=== PATIENT | female | born 1985 | race Caucasian/White ===

== ENCOUNTER 2020-07-17 08:59 | Outpatient (CLI) | payer MEDICAID, SELFPAY ==
--- NOTE | 2020-07-17 13:45 | DI.US_ITS ---
EXAM: US OB 1ST TRIMESTER CLINICAL HISTORY: Bleeding with TECHNIQUE: Ultrasound performed using standard protocol. COMPARISON: No exams were available for comparison FINDINGS: Transabdominal and transvaginal scanning was performed. The uterus measures 7.4 x 3.5 x 4.7 cm. Rig ht ovary measures 23 x 14 x 12 millimeters. Left ovary measures 22 x 13 x 13 millimeters. There is no evidence of an intrauterine gestational sac. Endometrial stripe measures about 6 millimeters in t hickness and appears homogeneous. No free fluid identified in the pelvis. IMPRESSION: No intrauterine gestation is identified. Ectopic is not excluded on the basis of this exam ination. Please correlate with history and serologic findings. DATA REPOSITORY:
== END 2020-07-17 09:19 ==
PROVIDERS: Visit Provider Nurse Practitioner Family
DX: O20.8 Other hemorrhage in early pregnancy (principal)
CPT/HCPCS: 76801

== ENCOUNTER 2021-03-22 03:37 | Outpatient (CLI) | payer MEDICAID, SELFPAY ==
[2021-03-22 16:22] LABS: Abs Immature Grans 0.06 10^3/uL (0.0-0.06); Absolute Basophil Count 0.02 10^3/uL (0.0-0.2); Absolute Eosinophil Count 0.73 10^3/uL (0.0-0.7); Absolute Lymphocyte Count 1.74 10^3/uL (1.2-3.4); Absolute Monocyte Count 0.63 10^3/uL (0.1-0.8); Absolute Neutrophil Count 5.47 10^3/uL (1.2-6.7); Basophils % 0.2; Eosinophils % 8.4; HCT 37.6 % (36.0-46.0); HGB 12.7 g/dL (11.2-15.7); Immature Grans % 0.7; Lymphocytes % 20.1; MCH 28.7 pg (27.0-33.0); MCHC 33.8 % (32.0-36.0); MCV 85.1 fL (80-95); Monocytes % 7.3; Neutrophils % 63.3; Nucleated RBC 0 %; RBC 4.42 10^6/uL (3.93-5.22); RDW 12.4 % (11.7-14.6); RDW-SD 38.2 fL; WBC 8.65 10^3/uL (4.4-10.8)
[2021-03-22 16:47] LABS: Platelet Count 235 10^3/uL (130-400)
[2021-03-22 17:31] LABS: *AMPHETAMINES SCREEN URINE Negative (Negative); *BARBITURATES SCREEN URINE Negative (Negative); *BENZODIAZEPINES SCREEN URINE Negative (Negative); Cannabinoids THC Negative (Negative); Cocaine Screen,Urine Negative (Negative); METHADONE URINE SCREEN Negative (Negative); OPIATES URINE SCREEN Negative (Negative); Tricyclic Antidepressants Negative (Negative)
[2021-03-28 12:27] LABS: Norbuprenorphine 355.8 ng/mL (Cutoff: 2.5)
== END 2021-03-22 03:38 | disposition home or self-care (01) ==
LOC: LBO 03:37
PROVIDERS: Visit Provider Advanced Practice Midwife
DX: Z34.92 Encounter for supervision of normal pregnancy, unspecified, second trimester (principal); Z3A.18 18 weeks gestation of pregnancy
CPT/HCPCS: 36415; 80307; 86787; 86803; 86900; 86901; 87340; 87389; 84443; 85025; 86762; 86780; 87086

== ENCOUNTER 2021-03-22 14:31 | Outpatient (CLI) | payer MEDICAID, SELFPAY ==
--- NOTE | 2021-03-22 14:15 | DI.US_ITS ---
Exam(s) US OB 1ST TRIMESTER EXAM: US OB 1ST TRIMESTER CLINICAL HISTORY: uncertain dates Z31.90. TECHNIQUE: Transabdominal obstetrical ultrasound performed. COMPARISON: US US OB 1ST TRIMESTER from 07/17/2020 US US OB 1ST TRIMESTER from 07/17/2020 FINDINGS:: Number of fetuses: One. Placental location: Posterior. No evidence of previa. Tip of the placenta 3.8 cm from the internal os. BIOMETRIC DATA: BPD: 40mm = 18 weeks HC: 148mm = 18 weeks AC: 123 mm = 18 weeks FL: 26 mm = 17+ 5 weeks EFW: 214 Gms = 74% Composite Age: 18 weeks 0 days EDC: 23 August 2021 Heart Rate: 173 BPM Amniotic fluid: Amount of fluid is visually within normal limits. IMPRESSION: Living intrauterine gestation 18 weeks 0 days. DATA REPOSITORY:
== END 2021-03-22 14:51 ==
PROVIDERS: Visit Provider Advanced Practice Midwife
DX: Z34.92 Encounter for supervision of normal pregnancy, unspecified, second trimester (principal); Z3A.18 18 weeks gestation of pregnancy
CPT/HCPCS: 76801

== ENCOUNTER 2021-03-26 07:08 | Outpatient (CLI) | payer MEDICAID, SELFPAY ==
[2021-03-26 09:06] VITALS: BP 109/64; PULSE 84; RESP 16; TEMP 36.5; O2SAT 99
[2021-03-26 09:08] VITALS: PULSE 86; O2SAT 99
[2021-03-26 10:14] LABS: Glucose,1 Hr (Glucola) 71 mg/dL (80-140)
[2021-03-26 11:40] LABS: FREE T4 0.75 ng/dL (0.76-1.46)
[2021-03-26 19:26] LABS: Thyroglobulin Antibody <15 U/mL (<=60); Thyroperoxidase Antibody 34 U/mL (<=60)
[2021-03-27 09:05] LABS: Hepatitis B Surface Ag Negative (Negative)
[2021-03-27 09:34] LABS: Hepatitis C Ab w Rflx HCV PCR Negative (Negative)
[2021-03-27 09:41] LABS: HIV-1/2 Ag & Ab Screen Negative (Negative)
[2021-03-27 11:23] LABS: Varicella IgG Antibody Positive (See Note)
[2021-03-27 11:31] LABS: Rubella IgG Ab (UVM) Positive (See Note)
[2021-03-27 12:34] LABS: Syphilis Total Ab w/Reflex Nonreactive (Nonreactive)
== END 2021-03-26 10:12 | disposition home or self-care (01) ==
LOC: LBO 07:09 → OBS 08:45
PROVIDERS: Advanced Practice Midwife; Visit Provider Advanced Practice Midwife
DX: Z34.91 Encounter for supervision of normal pregnancy, unspecified, first trimester (principal)
CPT/HCPCS: 36415; 82950; 86376; 86787; 86803; 86850; 86900; 86901; 87340; 87389; 99211; 84439; 84443; 86762; 86780

== ENCOUNTER 2021-06-05 07:18 | Outpatient (CLI) | payer MEDICAID, SELFPAY | END 2021-06-05 07:19 | disposition home or self-care (01) | LOC: BCD 07:20 | PROVIDERS: Visit Provider Advanced Practice Midwife | DX: R69 Illness, unspecified (principal) ==

== ENCOUNTER 2021-06-11 01:03 | Outpatient (CLI) | payer MEDICAID, SELFPAY | END 2021-06-11 01:23 | PROVIDERS: PCP Nurse Practitioner Adult Health; Visit Provider Advanced Practice Midwife ==

== ENCOUNTER 2021-06-18 17:14 | Outpatient (CLI) | payer MEDICAID, SELFPAY ==
[2021-06-18 18:26] VITALS: BP 120/71; PULSE 96
[2021-06-18 18:32] LABS: *AMPHETAMINES SCREEN URINE Negative (Negative); *BARBITURATES SCREEN URINE Negative (Negative); *BENZODIAZEPINES SCREEN URINE Negative (Negative); Cannabinoids THC Negative (Negative); Cocaine Screen,Urine Negative (Negative); METHADONE URINE SCREEN Negative (Negative); OPIATES URINE SCREEN Negative (Negative); Tricyclic Antidepressants Negative (Negative)
[2021-06-18 18:35] VITALS: BP 120/71; PULSE 96; TEMP 36.8
[2021-06-18 19:28] VITALS: BP 120/71; PULSE 96; TEMP 36.8
[2021-06-18 22:42] LABS: HCT 34.4 % (36.0-46.0); HGB 11.7 g/dL (11.2-15.7); MCH 29.8 pg (27.0-33.0); MCV 87.8 fL (80-95); MPV 10.5 fL (8.0-11.0); Platelet Count 283 10^3/uL (130-400); RBC 3.92 10^6/uL (3.93-5.22); RDW 12.7 % (11.7-14.6); RDW-SD 40.4 fL; WBC 8.94 10^3/uL (4.4-10.8)
[2021-06-18 23:02] LABS: Hemoglobin A1C 5.1 % (<5.7)
[2021-06-18 23:04] LABS: FREE T4 0.75 ng/dL (0.76-1.46); TSH 1.23 uIU/mL (0.36-3.74)
--- NOTE | 2021-06-18 23:05 | PDOC.NST_ITS ---
Date of service: 06/18/21 Time of Service: 20:00 NST Evaluation Reason for NST Reasons for Nonstress Test: DECREASED MOVEMENT Gestational Age Gestational Age in Weeks and Days: 30 Weeks and 4Days Test and Monitor Explained Test/Monitor Explained: Test Explained, Monitor Explained and Patient Verbalized Understanding Vital Signs Blood Pressure: 120/71 Pulse: 96 Temperature: 98.3 F NST Information Date on Monitor: 06/18/21 Time on Monitor: 17:33 Date off Monitor: 06/18/21 Time off Monitor: 19:18 Total Time on Monitor: 105 NST Interventions: PO Hydration NST Evaluation Patient States Movement: Present FHR Baseline: 135 Variability: Moderate 6-25 bpm Accelerations: 15x15 Decelerations: None NST Results: Reactive Note NST Note Note: DIRECTOR OF HOUSING AND ENERGY SERVICES available for ultrasound blood draw as pt is due for TSH/T4, CBC, HgbA1C added 1 hr glucola done using fingerstick, result was 153 Pt is scheduled for growth sono on 07/11 though she was not aware of this Will schedule pt for appt for tomorrow at 1000, review lab results then NST Reviewed and Verified by: Makayla Campoverde
[2021-06-18 23:08] VITALS: BP 120/71; PULSE 96; TEMP 36.8
--- NOTE | 2021-06-19 11:26 | TELEFU_ITS ---
Date of service: 06/19/21 Time of Service: 11:26 Nutrition Note NOTE: Met with Thelma at [facility]. She had elevated 1 hour glucola yesterday (153). Elevated BMI at conception (BMI31) however, has gained appropriately (+14 lbs). 30 weeks, 5 days. Thelma reports nausea has been a problem through out her and has relied on crackers and starchy foods for comfort. Often skips meals, when she does eat, its typically rice, noodles. Enjoys protein and vegetables but not interested in cooking due to nausea. Reviewed ideal blood sugar values and when to test BS. Reviewed importance of increasing protein in diet. Identified meals that she likes and encouraged her to log meals, blood sugars on log sheet provided by [facility]. Will follow up at next [facility] visit or prn. Time Spent in Nutritional Counseling and Treatment: 20
[2021-06-22 13:51] LABS: Buprenorphine 43.1 ng/mL (Cutoff: 5.0); Norbuprenorphine 265.9 ng/mL (Cutoff: 2.5)
== END 2021-06-18 19:25 | disposition home or self-care (01) ==
LOC: BCD 17:16 → OBS 17:19
PROVIDERS: PCP Nurse Practitioner Adult Health; Visit Provider Advanced Practice Midwife
DX: O36.8130 Decreased fetal movements, third trimester, not applicable or unspecified (principal); Z3A.30 30 weeks gestation of pregnancy; O09.523 Supervision of elderly multigravida, third trimester
CPT/HCPCS: 59025; 80307; 85027; 83036; 84439; 84443

== ENCOUNTER 2021-06-19 15:15 | Outpatient (REF) | payer MEDICAID, SELFPAY | END 2021-06-19 15:16 | disposition home or self-care (01) | LOC: LBN 15:15 | PROVIDERS: PCP Nurse Practitioner Adult Health; Visit Provider Advanced Practice Midwife | DX: Z34.92 Encounter for supervision of normal pregnancy, unspecified, second trimester (principal) | CPT/HCPCS: 87086 ==

== ENCOUNTER 2021-07-11 00:56 | Outpatient (CLI) | payer MEDICAID, SELFPAY ==
--- NOTE | 2021-07-11 08:15 | DI.US_ITS ---
Exam(s) US OB NICHELLE WEIGHT EXAM: US OB NICHELLE WEIGHT CLINICAL HISTORY: interval growth,covid,U07.1 TECHNIQUE: Ultrasound performed using standard protocol. COMPARISON: US US OB 1ST TRIMESTER from 03/22/2021 FINDINGS: Ob ultrasound was performed utilizing 3rd trimester protocol. biometry is consistent with gest ational age of 33 weeks 3 days and an EDC of August 26. The estimated weight is 2227 grams which is at the 34th percentile for predicted gestational ag e. Placenta is posterior with no evidence of placenta previa. There is visually a normal quantity of am niotic fluid and the NICHELLE is 11. Fetus is in cephalic presentation. heart rate is 158 BPM. IMPRESSION: DATA REPOSITORY:
== END 2021-07-11 01:16 ==
PROVIDERS: PCP Nurse Practitioner Adult Health; Visit Provider Advanced Practice Midwife
DX: O98.513 Other viral diseases complicating pregnancy, third trimester; U07.1 COVID-19; O09.523 Supervision of elderly multigravida, third trimester
CPT/HCPCS: 76816

== ENCOUNTER 2021-08-22 15:55 | Inpatient (IN) | payer MEDICAID, SELFPAY ==
[2021-08-22] VITALS (10 sets, daily range): BP systolic 120–137; BP diastolic 74–93; PULSE 73–93; RESP 16–18; TEMP 36.8; O2SAT 100; BMI 31.1
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
[2021-08-22 16:28] LABS: ROM Plus Positive
[2021-08-22 17:00] LABS: HCT 32.5 % (36.0-46.0); HGB 10.7 g/dL (11.2-15.7); MCH 26.8 pg (27.0-33.0); MCHC 32.9 % (32.0-36.0); MCV 81.3 fL (80-95); MPV 11.2 fL (8.0-11.0); Platelet Count 214 10^3/uL (130-400); RDW 12.3 % (11.7-14.6); RDW-SD 36.4 fL; WBC 6.91 10^3/uL (4.4-10.8)
--- NOTE | 2021-08-22 17:07 | W.OBNST ---
Date of service: 08/22/21 Time of Service: 16:30 NST Evaluation Reason for NST Reasons for Nonstress Test: OTHER, SEE COMMENT Reason for NST Other: r/o rom Gestational Age Gestational Age in Weeks and Days: 39 Weeks and 6Days Test and Monitor Explained Test/Monitor Explained: Test Explained, Monitor Explained and Patient Verbalized Understanding Vital Signs Blood Pressure: 132/86 Pulse: 93 Temperature: 98.2 F Urine Results Urine Protein: Negative Urine Ketones: Negative Urine Glucose: Negative Urine Blood: Negative NST Information Date on Monitor: 08/22/21 Time on Monitor: 15:35 Date off Monitor: 08/22/21 Time off Monitor: 16:05 Total Time on Monitor: 30 NST Interventions: None NST Evaluation Patient States Movement: Present FHR Baseline: 130 Variability: Moderate 6-25 bpm Accelerations: 15x15 Decelerations: None NST Results: Reactive Note NST Note Note: Thelma reports ROM and is here for NST due to inadequate care and non compliance with gestational diabetes testing. After discussion with Thelma, she was admitted for induction of labor and IV access with a midline due to poor venous access. NST Reviewed and Verified by: Concepcion Hancock
[2021-08-22 17:32] LABS: Glucose 73 mg/dL (74-106)
[2021-08-22 17:33] LABS: Hemoglobin A1C 5.5 % (<5.7)
[2021-08-22] MEDS: miSOPROStol 25 MCG TAB PO ×2 (17:49→22:00)
[2021-08-22] MEDS: Lactated Ringers 1,000 ML 200 ML IV ×2 (18:06→23:50)
[2021-08-22] MEDS: Penicillin G POT. 5,000,000 UNITS in Normal Saline 100 ML 200 UNITS IVPB (18:07)
[2021-08-22 18:55] LABS: T4 9.9 ug/mL (4.7-13.3)
[2021-08-22 19:28] LABS: Source Nasal/Nares
[2021-08-22] MEDS: Pregabalin 100 MG CAP PO (19:58)
[2021-08-22 20:17] LABS: COVID-19 PCR Negative (Negative)
[2021-08-22 21:03] LABS: *AMPHETAMINES SCREEN URINE Positive (Negative); *BARBITURATES SCREEN URINE Negative (Negative); *BENZODIAZEPINES SCREEN URINE Negative (Negative); Cannabinoids THC Negative (Negative); Cocaine Screen,Urine Negative (Negative); METHADONE URINE SCREEN Negative (Negative); OPIATES URINE SCREEN Negative (Negative)
[2021-08-22 21:16] LABS: Tricyclic Antidepressants Negative (Negative)
--- NOTE | 2021-08-22 21:45 | PGE_ITS ---
Date of service: 08/22/21 Time of Service: 21:46 Pelvic Exam Comments: exam deferred Cervix previously 1 cm/30% effaced/-3 station EFW 7-0 pounds. Contractions Contraction Frequency(min): every 5 minutes Contraction Duration(sec): 60 Intensity: Mild/Moderate Fetus A Heart Rate Baseline: 130 Variability: Moderate (6-25 BPM) Categories: Category I FHR Rhythm: Regular Accelerations: 15 X 15 Decelerations: None Amniotic Membrane Status: Ruptured Rupture Method: Spontaneous Amniotic Fluid: Clear Assessment and Plan Assessment and plan (1) Encounter for induction of labor: Status: Acute Assessment and plan: misoprostol per protocol, anticipate . (2) Anemia affecting : Status: Acute (3) care insufficient: Status: Acute Assessment and plan: UDS pos for amphetamines and she is prescribed Adderall for ADHD. (4) Prolonged rupture of membranes: Status: Acute Assessment and plan: Continue penicillin for GBS prophylaxis per protocol. Objective Abnormal lab results 08/22/21 08/22/21 08/22/21 Range/Units 16:40 16:40 20:00 Hgb 10.7 L (11.2-15.7) g/dL Hct 32.5 L (36.0-46.0) % MCH 26.8 L (27.0-33.0) pg MPV 11.2 H (8.0-11.0) fL Glucose 73 L (74-106) mg/dL Ur Amphetamines Screen Positive A (Negative) Temp Pulse Resp BP 98.2 F 86 18 120/74 08/22/21 21:38 08/22/21 21:38 08/22/21 21:38 08/22/21 21:38 Laboratory Results WBC 6.91 10^3/uL (4.4-10.8) 08/22/21 16:40 RBC 4.00 10^6/uL (3.93-5.22) 08/22/21 16:40 Hgb 10.7 g/dL (11.2-15.7) L 08/22/21 16:40 Hct 32.5 % (36.0-46.0) L 08/22/21 16:40 MCV 81.3 fL (80-95) 08/22/21 16:40 MCH 26.8 pg (27.0-33.0) L 08/22/21 16:40 MCHC 32.9 % (32.0-36.0) 08/22/21 16:40 RDW 12.3 % (11.7-14.6) 08/22/21 16:40 Plt Count 214 10^3/uL (130-400) 08/22/21 16:40 MPV 11.2 fL (8.0-11.0) H 08/22/21 16:40 Glucose 73 mg/dL (74-106) L 08/22/21 16:40 Hemoglobin A1c 5.5 % (<5.7) 08/22/21 16:40 TSH 1.90 uIU/mL (0.36-3.74) 08/22/21 16:40 Thyroxine (T4) 9.9 ug/mL (4.7-13.3) 08/22/21 16:40 Membranes Rupture Positive 08/22/21 15:53 Urine Opiates Screen Negative (Negative) 08/22/21 20:00 Urine Methadone Screen Negative (Negative) 08/22/21 20:00 Ur Barbiturates Screen Negative (Negative) 08/22/21 20:00 Ur Tricyclics Screen Negative (Negative) 08/22/21 20:00 Ur Amphetamines Screen Positive (Negative) A 08/22/21 20:00 U Benzodiazepines Scrn Negative (Negative) 08/22/21 20:00 Urine Cocaine Screen Negative (Negative) 08/22/21 20:00 Ur THC Screen Negative (Negative) 08/22/21 20:00 COVID-19 Source Nasal/Nares 08/22/21 19:20 SARS-CoV-2 (PCR) Negative (Negative) 08/22/21 19:20 Patient ABO/Rh O Positive 08/22/21 16:40 Antibody Screen NEGATIVE 08/22/21 16:40 Subjective Interval history since last seen: Midline was placed without difficulty by Alyssa zayas RN. ROM plus was pos. IV penicillin was started for prolonged ROM and unknown GBS status. Thelma is ex periencing mild dicomfort with contractions and is resting comfortably. Results Hemoglobin/Hematocrit: Hgb 10.7 g/dL (11.2-15.7) L 08/22/21 16:40 Hct 32.5 % (36.0-46.0) L 08/22/21 16:40 Abnormal Lab Findings: Abnormal Labs 08/22/21 08/22/21 08/22/21 16:40 16:40 20:00 Hgb 10.7 L Hct 32.5 L MCH 26.8 L MPV 11.2 H Glucose 73 L Ur Amphetamines Screen Positive A
[2021-08-22] MEDS: Penicillin G POT. 3,000,000 UNITS in Normal Saline 50 ML 100 UNITS IVPB ×2 (22:00)
--- NOTE | 2021-08-22 23:28 | ANES.PREOP_ITS ---
General Info Date of Service Date Performed: 08/22/21 Height: 5 ft 2 in Weight: 77.111 kg Body Mass Index (BMI): 31.1 Meds Allergies and Home Medications Allergies Allergy/AdvReac Type Severity Reaction Status Date / Time lamotrigine Allergy Severe Full body Verified 06/19/21 10:46 rash, shortness of breath latex Allergy Intermediate Rash Verified 06/19/21 10:46 naloxone [From Suboxone] AdvReac Intermediate Verified 06/19/21 10:46 Home Medication Medication Instructions Recorded prenat.vits,arminda,vfz-dutz-aqbzh 1 tab PO DAILY 03/21/21 buprenorphine HCl 8 mg sublingual 12 mg SUBLINGUAL DAILY 03/22/21 tablet pregabalin 100 mg capsule (Lyrica) 100 mg PO BID cap 04/24/21 alcohol swabs (Alcohol Pads) 1 pad TOPICAL .4 times daily #200 06/19/21 ea aspirin 81 mg chewable tablet 81 mg PO DAILY 06/19/21 blood sugar diagnostic (Blood #50 ea 06/19/21 Glucose Test) blood-glucose meter (Accu-Chek #1 ea 06/19/21 Guide Glucose Meter) lancets (Accu-Chek Softclix #100 ea 06/19/21 Lancets) blood sugar diagnostic (FreeStyle #100 ea 06/20/21 Lite Strips) blood-glucose meter (FreeStyle #1 ea 06/20/21 Lite Meter) levothyroxine 50 mcg capsule 50 mcg PO DAILY #30 cap 07/04/21 bupropion HCl 150 mg 24 hr tablet, 150 mg PO DAILY 08/22/21 extended release dextroamphetamine-amphetamine ER 10 mg PO DAILY 08/22/21 30 mg 24hr capsule,extend release dextroamphetamine-amphetamine ER 30 mg PO DAILY 08/22/21 30 mg 24hr capsule,extend release Current Visit Medications: Current Medications Generic Name Dose Route Start Last Admin Trade Name Freq PRN Reason Stop Dose Admin Amphetamine Aspartate/Amphetam Sulf 10 mg 08/23/21 08:30 Amphet Asp/Amphet/D-Amphet 10 Mg Tab PO DAILY AGAPITO Amphetamine Aspartate/Amphetam Sulf 30 mg 08/23/21 08:30 Amphet Asp/Amphet/D-Amphet 30 Mg Capcr PO DAILY AGAPITO Buprenorphine HCl 12 mg 08/23/21 08:30 Buprenorphine 8 Mg Sublingual Tablet SL DAILY [facility] Bupropion HCl 150 mg 08/23/21 08:30 Bupropion-Xl 150 Mg Tabcr PO DAILY [facility] Fentanyl/Ropivacaine 200 ml 08/22/21 23:15 Fentanyl/Ropivacaine 2 Mcg/Ml And 0.1% 200 Ml Cadd Cassette EP DIRECTED [facility] Ringer's Solution 1,000 mls @ 200 mls/hr 08/22/21 16:00 08/22/21 23:19 IV Infused INFUSION [facility] Infusion Sodium Chloride 500 mls @ 0 mls/hr 08/22/21 15:55 Saline 500ml Bag IV PRN PRN As Directed Penicillin G Potassium 3,000, 50 mls @ 100 mls/hr 08/22/21 22:00 000 units/ Sodium Chloride IVPB Q4H [facility] Ringer's Solution 500 mls @ 500 mls/hr 08/22/21 23:12 IV 08/23/21 00:11 BOLUS ONE IV Miscellaneous Supplies 1 each 08/22/21 16:00 Iv Access IV DIRECTED [facility] IV Miscellaneous Supplies 1 each 08/22/21 17:15 Iv Access IV DIRECTED [facility] Levothyroxine Sodium 50 mcg 08/23/21 06:00 Levothyroxine 50 Mcg Tab PO DAILY@0600 [facility] Misoprostol 25 mcg 08/22/21 22:00 08/22/21 22:00 Misoprostol 25 Mcg Tab PO 25 mcg Q4H [facility] Administration Pregabalin 100 mg 08/22/21 20:00 08/22/21 19:58 Pregabalin 100 Mg Cap PO 100 mg BID [facility] Administration Sodium Chloride 0 ml 08/22/21 15:55 Normal Saline Flush 10 Ml Syr IVP PRN PRN Sodium Chloride 0 ml 08/22/21 20:00 08/22/21 21:25 Normal Saline Flush 10 Ml Syr IVP Not Given BID [facility] Terbutaline Sulfate 0.25 mg 08/22/21 15:55 Terbutaline 1 Mg/Ml Vial SC PRN PRN PFSH Active Problems Active Problems: Problem Status Onset Code Prolonged rupture of membranes O42.90 Anemia affecting O99.019 Encounter for induction of labor Z34.90 Elevated glucose level R73.09 care insufficient O09.30 COVID-19 affecting , antepartum O98.519, U07.1 Left sciatic nerve pain M54.32 Poor venous access I87.8 Sciatica, right side M54.31 ADHD F90.9 Thyroid disease E07.9 Z34.90 Chronic pain G89.29 Opiate dependence F11.20 Fibromyalgia M79.7 Advanced maternal age (AMA) in Medical History Medical History (Updated 08/22/21 @ 21:56 by Concepcion Hancock CNM) History of abnormal cervical Pap smear Tobacco Smoking/Tobacco Use Status: Never Alcohol Alcohol Intake: former Substance Use Substance use type: opiates, IV drugs and other Details: subutex currently Details: attends drug and alcohol counseling, MAT treatment with subutex Prental History History 4 Para 2 Hx # Term Pregnancies 2 Multiple births Hx # Pregnancies Ectopic pregnancies AB induced 1 Hx Number of Living Children AB spontaneous 1 Past Pregnancies Del. Date GA/Weeks # Outcome Route Wgt Sex Labor Lgth Anesthes ia Location [facility] 05/19/07 41 Yes Successful vaginal 3827.186 g Male 24 [place] 07/06/12 40 No Successful vaginal 2721.554 g Female 16 [place] 07/18/20 Unsuccessful SAB Delivery Date: 05/19/07 Last Updated by: Concepcion Hancock CNM long pushing phase, heavy bleeding Delivery Date: 07/06/12 Last Updated by: Concepcion Hancock CNM heavy bleeding after delivery. long pushing phase Vital Signs and Lab Results Vital Signs Most Recent Vital Signs in EMR: Most Recent Vital Signs Temp Pulse Resp BP 36.8 C 86 18 120/74 08/22/21 21:38 08/22/21 21:38 08/22/21 21:38 08/22/21 21:38 Lab Results Result Diagrams: 08/22/21 16:40 08/22/21 16:40 Blood Type / Crossmatch: Patient ABO/Rh O Positive 08/22/21 Antibody Screen NEGATIVE 08/22/21 Complete Blood Count: White Blood Count 6.91 10^3/uL (4.4-10.8) 08/22/21 16:40 08/22/21 Red Blood Count 4.00 10^6/uL (3.93-5.22) 08/22/21 16:40 08/22/21 Hemoglobin 10.7 g/dL (11.2-15.7) L 08/22/21 16:40 08/22/21 Hematocrit 32.5 % (36.0-46.0) L 08/22/21 16:40 08/22/21 Platelet Count 214 10^3/uL (130-400) 08/22/21 16:40 08/22/21 Complete Metabolic Panel: Glucose Level 73 mg/dL (74-106) L 08/22/21 16:40 08/22/21 Hemoglobin A1c 5.5 % (<5.7) 08/22/21 16:40 08/22/21 Liver Function Panel: No Data to Display Coagulation Panel: No Data to Display Cardiac Panel: No Data to Display Arterial Blood Gas: No Data to Display Venous Blood Gas: No Data to Display Pancreas Panel: No Data to Display Thyroid Panel: Thyroid Stimulating Hormone (TSH) 1.90 uIU/mL (0.36-3.74) 08/22/21 16:40 08/22/21 Thyroxine (T4) 9.9 ug/mL (4.7-13.3) 08/22/21 16:40 08/22/21 Infectious Disease: Coronavirus (COVID-19)(PCR) Negative (Negative) 08/22/21 19:20 08/22/21 Coronavirus 2019 Source Nasal/Nares 08/22/21 19:20 08/22/21 Blood Cultures: No Data to Display Toxicology Panel: Urine Amphetamines Screen Positive (Negative) A 08/22/21 20:00 08/22/21 Urine Benzodiazepines Screen Negative (Negative) 08/22/21 20:00 08/22/21 Urine Barbiturates Screen Negative (Negative) 08/22/21 20:00 08/22/21 Urine Cocaine Screen Negative (Negative) 08/22/21 20:00 08/22/21 Urine Methadone Screen Negative (Negative) 08/22/21 20:00 08/22/21 Urine Opiates Screen Negative (Negative) 08/22/21 20:00 08/22/21 Ur Tricyclic Antidepressants Screen Negative (Negative) 08/22/21 20:00 08/22/21 Ur Tetrahydrocannabinol (THC) Scrn Negative (Negative) 08/22/21 20:00 08/22/21 Panel: No Data to Display Anesthesia Assessment and Plan Anesthesia History Personal History: No History of Anesthesia Complications Family History: No Family History of Anesthesia Complications Exercise Tolerance Exercise Tolerance: Metabolic Equivalents>4 Pertinent Negatives Pertinent Negatives: No Major Cardiovascular Symptoms or Complaints and No Major Pulmonary Symptoms or Complaints Cardiac & Pulmonary Exam Cardiac Exam: Normal S1/S2 Heart Sounds Pulmonary Exam: Clear Bilateral Breath Sounds Implantable Cardiac Device Does patient have a Pacemaker or an ICD?: No Airway Exam Known Difficult Airway: No Mallampati Class: 3 Mouth Opening: Normal (> 3cm) Thyromental Distance: Greater than 3 cm Neck Range of Motion: Full ROM Neck Circumference: Normal Teeth Condition: Normal Dentition ASA Classification ASA Score: ASA 2 Emergency Case?: No NPO Status NPO Status: Full Stomach Status Status: Confirmed Anesthesia Plan Resuscitation Status: Full Code Anesthesia Technique: Epidural Anesthesia Airway Planned: Natural Airway Pain Management: Epidural Monitors Used: Standard Monitors
[2021-08-22] MEDS: fentaNYL 100 MCG/2 ML VIAL EP (23:55)
[2021-08-22] MEDS: Bupivacaine 0.25% Pres-Free 10 ML VIAL EP (23:55)
[2021-08-23] VITALS (60 sets, daily range): BP systolic 99–132; BP diastolic 53–84; PULSE 63–146; RESP 16–17; TEMP 36.6–37.1; O2SAT 95–100
--- NOTE | 2021-08-23 00:02 | W.PM.OBNL1 ---
Date of service: 08/23/21 Time of Service: 00:02 Pelvic Exam Comments: exam deferred Contractions Monitor Mode: External Contraction Frequency(min): every 3-4 Contraction Duration(sec): 60 Intensity: Moderate Fetus A Heart Rate Baseline: 130 Variability: Moderate (6-25 BPM) Categories: Category I FHR Rhythm: Regular Accelerations: 15 X 15 Decelerations: None Assessment and Plan Assessment and plan (1) Encounter for induction of labor: Status: Acute Assessment and plan: Anticipate , consider rupture of forebag when appropriate. Objective Abnormal lab results 08/22/21 08/22/21 08/22/21 Range/Units 16:40 16:40 20:00 Hgb 10.7 L (11.2-15.7) g/dL Hct 32.5 L (36.0-46.0) % MCH 26.8 L (27.0-33.0) pg MPV 11.2 H (8.0-11.0) fL Glucose 73 L (74-106) mg/dL Ur Amphetamines Screen Positive A (Negative) Temp Pulse Resp BP Pulse Ox 98.2 F 74 18 123/74 99 08/22/21 21:38 08/23/21 00:01 08/22/21 21:38 08/23/21 00:01 08/23/21 00:01 Laboratory Results WBC 6.91 10^3/uL (4.4-10.8) 08/22/21 16:40 RBC 4.00 10^6/uL (3.93-5.22) 08/22/21 16:40 Hgb 10.7 g/dL (11.2-15.7) L 08/22/21 16:40 Hct 32.5 % (36.0-46.0) L 08/22/21 16:40 MCV 81.3 fL (80-95) 08/22/21 16:40 MCH 26.8 pg (27.0-33.0) L 08/22/21 16:40 MCHC 32.9 % (32.0-36.0) 08/22/21 16:40 RDW 12.3 % (11.7-14.6) 08/22/21 16:40 Plt Count 214 10^3/uL (130-400) 08/22/21 16:40 MPV 11.2 fL (8.0-11.0) H 08/22/21 16:40 Glucose 73 mg/dL (74-106) L 08/22/21 16:40 Hemoglobin A1c 5.5 % (<5.7) 08/22/21 16:40 TSH 1.90 uIU/mL (0.36-3.74) 08/22/21 16:40 Thyroxine (T4) 9.9 ug/mL (4.7-13.3) 08/22/21 16:40 Membranes Rupture Positive 08/22/21 15:53 Urine Opiates Screen Negative (Negative) 08/22/21 20:00 Urine Methadone Screen Negative (Negative) 08/22/21 20:00 Ur Barbiturates Screen Negative (Negative) 08/22/21 20:00 Ur Tricyclics Screen Negative (Negative) 08/22/21 20:00 Ur Amphetamines Screen Positive (Negative) A 08/22/21 20:00 U Benzodiazepines Scrn Negative (Negative) 08/22/21 20:00 Urine Cocaine Screen Negative (Negative) 08/22/21 20:00 Ur THC Screen Negative (Negative) 08/22/21 20:00 COVID-19 Source Nasal/Nares 08/22/21 19:20 SARS-CoV-2 (PCR) Negative (Negative) 08/22/21 19:20 Patient ABO/Rh O Positive 08/22/21 16:40 Antibody Screen NEGATIVE 08/22/21 16:40 Subjective Interval history since last seen: Thelma requested an epidural for pain relief and that was placed by Nupur Ghotra CRNA. Results Hemoglobin/Hematocrit: Hgb 10.7 g/dL (11.2-15.7) L 08/22/21 16:40 Hct 32.5 % (36.0-46.0) L 08/22/21 16:40 Abnormal Lab Findings: Abnormal Labs 08/22/21 08/22/21 08/22/21 16:40 16:40 20:00 Hgb 10.7 L Hct 32.5 L MCH 26.8 L MPV 11.2 H Glucose 73 L Ur Amphetamines Screen Positive A
[2021-08-23] MEDS: FentaNYL/ROPIvacaine 2 mcg/ml and 0.1% 200 ML CADD Cassette EP (00:09)
--- NOTE | 2021-08-23 00:11 | ANES.NEUR_ITS ---
Epidural/Spinal Catheter Date Performed: 08/23/21 Procedure Start: 23:48 Procedure Stop: 00:09 Requesting Provider: Concepcion Canela Procedure Location: Obstetrics Reason Performed: Labor Epidural Standard Monitors Applied: ECG, Blood Pressure, SpO2 and See EMR for corresponding vital signs Patient Position: Sitting Sedation Given (Indicate Dose Given): No Sedation given Patient Mental Status: Awake Sterility: Hand Hygiene, Surgical Cap, Surgical Mask, Sterile Gloves, Sterile Drape/Sheet and Chlorhexidine Procedure Location: L2-L3 Interspace Epidural Needle: Tuohy 18 Gauge Needle Length: 3.5 Inch Needle Approach: Midline Epidural Procedure: Skin Prepped, Sterile Drape Placed, 1% Lidocaine to skin and subcutaneous tissue with 25G needle, Tuohy Needle placed, DENISE to Saline Used, E pidural Catheter Placed, Negative Heme, Negative CSF Flow and Tuohy Needle Removed Catheter Placed?: Catheter Placed Test Dose (Indicate Dose Given): 3ml 1.5% Lidocaine with 1:200K Epinephrine Given and Negative Test Dose Loss of Resistance Depth (cm): 9 Catheter depth at skin (cm): 14 Dressing: Sorbaview Dressing Placed, Mastisol Used and Dressing reinforced with Tape Epidural Provider Bolus (Indicate Dose Given): Total bolus dose given in 3-5 ml divided doses and Total Bupivacaine 0.25% Given (ml) Dose:: 6 ml Additives (Indicate Dose Given ): Fentanyl PF Dose:: 100 mcg Infusion Medication: Medication Infusion Began (Started at 0009) Medication Infusion: Bupivacaine 0.0625% with Fentanyl 2mcg/ml Maintenance Infusion Rate (ml/hour): 10 PCEA Bolus Dose (ml): 5 Post Procedure Pain score (0-10): 0 Block Level: N/A Paresthesia: None Ultrasound: Not Used Number of Attempts (See previous attempts in note section): 1 Procedure Tolerated: No Complications and Patient tolerated well Procedure Outcome: Successful Procedure Comment:: loading dose at 2355 Performed By: Tricia Ghotra
[2021-08-23] MEDS: Penicillin G POT. 3,000,000 UNITS in Normal Saline 50 ML 100 UNITS IVPB ×2 (02:17→06:09)
[2021-08-23] MEDS: Ondansetron 4 MG/2 ML VIAL IVP (02:30)
[2021-08-23] MEDS: miSOPROStol 25 MCG TAB PO (03:36)
[2021-08-23] MEDS: Lactated Ringers 1,000 ML 125 ML IV (05:05)
[2021-08-23] MEDS: Levothyroxine 50 MCG TAB PO (06:09)
--- NOTE | 2021-08-23 06:37 | W.PM.OBNL1 ---
Date of service: 08/23/21 Time of Service: 06:37 Pelvic Exam Dilation: 5 Effacement (%): 90 station: -1 Cervix Position: mid Consistency: soft Pooling: Positive Contractions Monitor Mode: External Contraction Frequency(min): every 4 Contraction Duration(sec): 60 Intensity: Moderate/Strong Fetus A Monitor: External (US) Heart Rate Baseline: 130 Presentation: Vertex Variability: Moderate (6-25 BPM) Categories: Category I FHR Rhythm: Regular Accelerations: 15 X 15 Decelerations: Variable (episodic early and variable decelerations) Assessment and Plan Assessment and plan (1) Prolonged rupture of membranes: Status: Acute Assessment and plan: Forebag paplapble and moderate gush of clear fluid with SVE (2) Encounter for induction of labor: Status: Acute Assessment and plan: re-assess in 2 hours. Alexa goodman FARA will be assuming her care. Consider pitocin augmentation if necessary. Anticipate . Objective Abnormal lab results 08/22/21 08/22/21 08/22/21 Range/Units 16:40 16:40 20:00 Hgb 10.7 L (11.2-15.7) g/dL Hct 32.5 L (36.0-46.0) % MCH 26.8 L (27.0-33.0) pg MPV 11.2 H (8.0-11.0) fL Glucose 73 L (74-106) mg/dL Ur Amphetamines Screen Positive A (Negative) Temp Pulse Resp BP Pulse Ox 98.1 F 76 16 114/58 L 96 08/23/21 04:43 08/23/21 06:28 08/23/21 06:28 08/23/21 06:28 08/23/21 06:28 Laboratory Results WBC 6.91 10^3/uL (4.4-10.8) 08/22/21 16:40 RBC 4.00 10^6/uL (3.93-5.22) 08/22/21 16:40 Hgb 10.7 g/dL (11.2-15.7) L 08/22/21 16:40 Hct 32.5 % (36.0-46.0) L 08/22/21 16:40 MCV 81.3 fL (80-95) 08/22/21 16:40 MCH 26.8 pg (27.0-33.0) L 08/22/21 16:40 MCHC 32.9 % (32.0-36.0) 08/22/21 16:40 RDW 12.3 % (11.7-14.6) 08/22/21 16:40 Plt Count 214 10^3/uL (130-400) 08/22/21 16:40 MPV 11.2 fL (8.0-11.0) H 08/22/21 16:40 Glucose 73 mg/dL (74-106) L 08/22/21 16:40 Hemoglobin A1c 5.5 % (<5.7) 08/22/21 16:40 TSH 1.90 uIU/mL (0.36-3.74) 08/22/21 16:40 Thyroxine (T4) 9.9 ug/mL (4.7-13.3) 08/22/21 16:40 Membranes Rupture Positive 08/22/21 15:53 Urine Opiates Screen Negative (Negative) 08/22/21 20:00 Urine Methadone Screen Negative (Negative) 08/22/21 20:00 Ur Barbiturates Screen Negative (Negative) 08/22/21 20:00 Ur Tricyclics Screen Negative (Negative) 08/22/21 20:00 Ur Amphetamines Screen Positive (Negative) A 08/22/21 20:00 U Benzodiazepines Scrn Negative (Negative) 08/22/21 20:00 Urine Cocaine Screen Negative (Negative) 08/22/21 20:00 Ur THC Screen Negative (Negative) 08/22/21 20:00 COVID-19 Source Nasal/Nares 08/22/21 19:20 SARS-CoV-2 (PCR) Negative (Negative) 08/22/21 19:20 Patient ABO/Rh O Positive 08/22/21 16:40 Antibody Screen NEGATIVE 08/22/21 16:40 Subjective Interval history since last seen: Thelma slept well and is comfortable with epidural. She got up to the commode and voided. She is now leaking a large amount of clear fluid since 229. Results Hemoglobin/Hematocrit: Hgb 10.7 g/dL (11.2-15.7) L 08/22/21 16:40 Hct 32.5 % (36.0-46.0) L 08/22/21 16:40 Abnormal Lab Findings: Abnormal Labs 08/22/21 08/22/21 08/22/21 16:40 16:40 20:00 Hgb 10.7 L Hct 32.5 L MCH 26.8 L MPV 11.2 H Glucose 73 L Ur Amphetamines Screen Positive A
--- NOTE | 2021-08-23 08:51 | W.PM.OBNL1 ---
Date of service: 08/23/21 Time of Service: 08:51 Informed Consent Informed Consent: Augmentation of Labor (pitocin for second stage due to contx 6-8 mins. KH) Pelvic Exam Dilation: 10 Effacement (%): 100 station: -1 Position: TYRELL Contractions Monitor Mode: External Contraction Frequency(min): 6-8 Contraction Duration(sec): 60 Intensity: Moderate/Strong Fetus A Monitor: External (US) Heart Rate Baseline: 140 Variability: Moderate (6-25 BPM) Categories: Category II (pitocin augmentation to allow for more frequent contractions and facilitate second stage progress. ) CategoryII Plan of Care: Continuous Monitoring/Observation Accelerations: 15 X 15 Decelerations: Variable (occasional variable to 100 X 15 seconds) Assessment and Plan Assessment and plan (1) Irregular uterine contractions: Status: Acute Objective Abnormal lab results 08/22/21 08/22/21 08/22/21 Range/Units 16:40 16:40 20:00 Hgb 10.7 L (11.2-15.7) g/dL Hct 32.5 L (36.0-46.0) % MCH 26.8 L (27.0-33.0) pg MPV 11.2 H (8.0-11.0) fL Glucose 73 L (74-106) mg/dL Ur Amphetamines Screen Positive A (Negative) Temp Pulse Resp BP Pulse Ox 97.8 F 94 H 16 108/67 98 08/23/21 08:49 08/23/21 08:20 08/23/21 06:28 08/23/21 07:49 08/23/21 08:20 Laboratory Results WBC 6.91 10^3/uL (4.4-10.8) 08/22/21 16:40 RBC 4.00 10^6/uL (3.93-5.22) 08/22/21 16:40 Hgb 10.7 g/dL (11.2-15.7) L 08/22/21 16:40 Hct 32.5 % (36.0-46.0) L 08/22/21 16:40 MCV 81.3 fL (80-95) 08/22/21 16:40 MCH 26.8 pg (27.0-33.0) L 08/22/21 16:40 MCHC 32.9 % (32.0-36.0) 08/22/21 16:40 RDW 12.3 % (11.7-14.6) 08/22/21 16:40 Plt Count 214 10^3/uL (130-400) 08/22/21 16:40 MPV 11.2 fL (8.0-11.0) H 08/22/21 16:40 Glucose 73 mg/dL (74-106) L 08/22/21 16:40 Hemoglobin A1c 5.5 % (<5.7) 08/22/21 16:40 TSH 1.90 uIU/mL (0.36-3.74) 08/22/21 16:40 Thyroxine (T4) 9.9 ug/mL (4.7-13.3) 08/22/21 16:40 Membranes Rupture Positive 08/22/21 15:53 Urine Opiates Screen Negative (Negative) 08/22/21 20:00 Urine Methadone Screen Negative (Negative) 08/22/21 20:00 Ur Barbiturates Screen Negative (Negative) 08/22/21 20:00 Ur Tricyclics Screen Negative (Negative) 08/22/21 20:00 Ur Amphetamines Screen Positive (Negative) A 08/22/21 20:00 U Benzodiazepines Scrn Negative (Negative) 08/22/21 20:00 Urine Cocaine Screen Negative (Negative) 08/22/21 20:00 Ur THC Screen Negative (Negative) 08/22/21 20:00 COVID-19 Source Nasal/Nares 08/22/21 19:20 SARS-CoV-2 (PCR) Negative (Negative) 08/22/21 19:20 Patient ABO/Rh O Positive 08/22/21 16:40 Antibody Screen NEGATIVE 08/22/21 16:40 Subjective Interval history since last seen: feeling rectal pressure and wants directed pushing but contractions have spaced out to 6-8 minutes apart. We discussed continued expectant management vs augmentation with pitocin. Patient requests pitocin to make contractions stronger and closer together. KH Results Hemoglobin/Hematocrit: Hgb 10.7 g/dL (11.2-15.7) L 08/22/21 16:40 Hct 32.5 % (36.0-46.0) L 08/22/21 16:40 Abnormal Lab Findings: Abnormal Labs 08/22/21 08/22/21 08/22/21 16:40 16:40 20:00 Hgb 10.7 L Hct 32.5 L MCH 26.8 L MPV 11.2 H Glucose 73 L Ur Amphetamines Screen Positive A
[2021-08-23] MEDS: Normal Saline 500 ML IV (09:06)
[2021-08-23] MEDS: Oxytocin/Normal Saline 30 UNIT/500 ML BAG 2 UNITS IV (09:06)
--- NOTE | 2021-08-23 11:50 | PLAC_PTH ---
PATIENT: Thelma Gan LOC: OBS U#:[id number] AGE/SX: 35/F ROOM: OBS.303 RE08/22/[address]: Concepcion Hancock : 1985 BED: A DIS: 08/25/2021 SPEC #: [id number] RECD: 08/23/21 13:15 STATUS: LEXII REQ #: [id number] RANDOLPH: 08/23/21 11:[address]: Concepcion Hancock DEPT: Surgical Specimen RECD BY: Citlaly Fleming ENTERED: 08/23/21 13:16 SP TYPE: PLAC OTHR DR: Kiara Lala Tissues: 1 - PLACENTA (3RD TRIMESTER) Procedures: GROSS AND MICRO LEVEL 5 Comments: [id number]
--- NOTE | 2021-08-23 12:10 | OBVDS_ITS ---
Date of service: 08/23/21 Time of Service: 12:10 OB Labor/ Delivery Information Baby A Delivery Delivery Method: Spontaneaous Presentation: Cephalic Cephalic Position: Vertex Vertex Position: Right Occipital Anterior Cord Description-Baby A: 3 Vessels, Nuchal Cord (loose X 1 reduced after head delivered. KH) and Clamped/Cut Cord Description Comment: segment for drugs of abuse obtained. Amniotic Fluid: Clear Estimated Blood Loss: QBL 250 at delivery Delivery Outcome: Liveborn Complications: some grunting after delivery. Pediatrics notified. Transferred: Remains with Mother Note: Thelma Gan was 10 cm at 0818 this morning. FHR tracing had been CAT I throughout first stage of labor. Second stage huddle was done and patient preferred to begin pushing. She had excellent pushing technique but contractions had spaced out to 6-8 minutes apart and were not as intense. Pitocin augmentation initiated. Patient had urge to push and began pushing shortly after . We pushed in multiple positions, and with some progression to +1. FHR tracing became CAT II with occasional variable decelerations and early decelerations but continued moderate variability and accelerations. Dr. Ibrahim was notified and attended per CN request when patient was nearing 2 hours of pusing with some descent but not as expected. Dr. Ibrahim reviewed and maternal status an d encouraged continued effort. Live make delivered at 11:44 over intact perineum, loose nuchal cord X 1 reduced prior to shoulders delivering. Baby was delivered onto maternal abdomen for skin to skin. 8/9. Good cry and color. Cord was double clamped and cut by FOB after 2 minutes of delayed cord clamping. A segment of cord was obtained for drug screening due to maternal history and minimal care. Placenta will be sent to pathology due to patient having COVID times 2 in . Placenta delivered spontaneously at 1150, intact via joel mechanism. Fundus firmed to U-1 with massage and IV pitocin infusion. Mother and baby are in satisfactory condition. Patient plans circumcision for her baby. Contraception plan is depo prior to discharge and possibly Mirena at 6-10 weeks PP. Patient plans to breast feed her baby. Providers Nurse Welt Maker: Concepcion Canela Nurse: Yudy Conrad Nurse: Jake Aaron Labor/Delivery Information Number of Babies in Womb: 1 Steroids Given: None Reason Steroids Not Administered: N/A Group Beta Strep: Done-Result Unknown Antibiotics Administered: No Rubella Status: Immune Blood Type: O+ Varicella Immunity: Immune Medication in Delivery: none Maternal Complications: Premature Rupture of Membranes and Prolonged Labor(>20hrs) Stages of Labor Onset of Labor Date: 08/22/21 Onset of Labor Time: 12:12 Complete Dilatation Date: 08/23/21 Complete Dilatation Time: 08:18 Labor - Stage 1 Duration: 24 hours and 0 minutes ROM Baby A: 08/21/21 ROM Baby A: 18:00 ROM Total Time- Baby A: [id number] Delivery Date-Baby A: 08/23/21 Infant Delivery Time-Baby A: 11:44 Labor Stage 2 Duration: 3 hours and 26 minutes Placenta Delivery Date-Baby A: 08/23/21 Placenta Delivery Time-Baby A: 11:50 Labor-Stage 3 Duration: 6 minutes Total Length of Labor-Baby A: 23 hours and 32 minutes Placenta Status: Delivered Baby A Infant Gender: Male Gestational Status: Term (39-41.6 wks) Gestational Age in Weeks/Days: 40 Weeks and 0 Days
--- NOTE | 2021-08-23 12:48 | W.ANESPOSTOP ---
Postoperative Evaluation Date, Time and Location Date Performed: 08/23/21 Time Performed: 12:48 Patient Location: Day Surgery Unit Vital Signs Most Recent Imported Vital Signs: Most Recent Vital Signs Temp Pulse Resp BP Pulse Ox 36.9 C 85 17 118/69 95 08/23/21 10:20 08/23/21 12:46 08/23/21 10:20 08/23/21 12:46 08/23/21 10:29 Assessment Mental Status: Awake (Alert & Oriented to Patient Baseline) Airway and Respiratory Function: Patent airway with normal (patient baseline) respiratory exam Cardiovascular Function: Hemodynamically Stable Hydration Status: Adequately Hydrated Nausea & Vomiting: No Nausea or Vomiting Pain: Pain is tolerable per patient Peripheral Nerve Block: Patient did not receive a nerve block
[2021-08-23] MEDS: Pregabalin 100 MG CAP PO ×2 (12:49→19:55)
[2021-08-23] MEDS: buPROPion-XL 150 MG TABCR PO (12:51)
[2021-08-23] MEDS: Ibuprofen 600 MG TAB PO ×2 (13:05→19:55)
[2021-08-23] MEDS: Acetaminophen 325 MG TAB 650 MG PO ×2 (13:05→19:55)
[2021-08-23] MEDS: Normal Saline Flush 10 ML SYR IVP (20:10)
[2021-08-24 00:16] VITALS: BP 105/66; PULSE 92; RESP 18; TEMP 36.8; O2SAT 96
[2021-08-24] MEDS: Acetaminophen 325 MG TAB 650 MG PO ×2 (04:30→16:20)
[2021-08-24] MEDS: Ibuprofen 600 MG TAB PO ×2 (04:35→16:20)
[2021-08-24 06:19] LABS: HCT 28.8 % (36.0-46.0); HGB 9.3 g/dL (11.2-15.7); MCH 26.4 pg (27.0-33.0); MCHC 32.3 % (32.0-36.0); MCV 81.8 fL (80-95); MPV 10.7 fL (8.0-11.0); Platelet Count 167 10^3/uL (130-400); RBC 3.52 10^6/uL (3.93-5.22); RDW 12.6 % (11.7-14.6); RDW-SD 37.6 fL; WBC 9.91 10^3/uL (4.4-10.8)
[2021-08-24] MEDS: Levothyroxine 50 MCG TAB PO (07:40)
[2021-08-24 07:43] VITALS: BP 105/70; PULSE 78; RESP 16; TEMP 36.5; O2SAT 96
[2021-08-24] MEDS: Pregabalin 100 MG CAP PO ×2 (08:26→20:04)
[2021-08-24] MEDS: buPROPion-XL 150 MG TABCR PO (08:26)
--- NOTE | 2021-08-24 08:58 | OBPPV_ITS ---
Date of service: 08/24/21 Time of Service: 08:58 Assessment and Plan Assessment and plan (1) care following vaginal delivery: Status: Acute Assessment and plan: 1. continue present management. 2. will discontinue aderall 10 mg while in hospital as patient is declining that dose at this time. 3. probable discharge tomorrow, patient will remains with her baby after that for eat sleep console. 4. Depo Provera IM prior to discharge.CHUCHO (2) Lactating mother: Status: Acute Assessment and plan: 1. Continue present management, patient verbalizes understanding of eat sleep console. CHUCHO (3) Anemia, : Status: Acute Assessment and plan: 1. mild decrease in hgb from admission, will start PO iron therapy. CHUCHO 2. tolerating own ADL's without difficulty. Subjective Subjective Interval history: Thelma is feeling well. Out of bed without assistance. Breast feeding going well even though baby has a short frenulum. Patient denies history of PPD and denies current symptoms. She is planning depo prior to discharge and then IUD at 6-8 weeks PP. She reports that they have 2 vehicles now and it will make it possible for her to come to the office for her PP visits. She is aware that she will be discharged as a patient tomorrow and that she will need her meds from home to self medicate while she remains here with her baby for the remaining days needed for eat sleep console. FOB is reportedly not aware that Thelma has been taking medications to help her with her opiate dependence. He was not present this morning and she was able to discuss her medications and will be able to arrange with someone to bring them tomorrow to her. Patient's Mood: good, positive bonding noted. baby status: Nursing well and Rooming in [place] feeding status: Exclusively breast feeding Exam Physical Exam Vital signs: Temp Pulse Resp BP Pulse Ox 97.7 F 78 16 105/70 96 08/24/21 07:43 08/24/21 07:43 08/24/21 07:43 08/24/21 07:43 08/24/21 07:43 Vital Signs Reviewed: Yes Constitutional Constitutional: no acute distress and obese HEENT Exam HEENT Exam: Normal Neck Exam Neck Exam: Normal (on visual inspection. ) Breast Exam Bilateral: Breast Exam: Normal Nipple Exam: Normal Respiratory Exam Respiratory Exam: Normal Cardiovascular Exam Cardiovascular Exam: Normal Fundal Exam Fundus: Below Umbilicus and Firm Rectal Exam Rectal Exam: Not Done Exam Patient deferred: external exam and perineal exam Comments: reports mild perineal pain. voiding without difficulty. KH Extremities Exam Extremity Exam: Normal and Full ROM Skin Exam Skin Exam: Normal Neurological Exam Neurological Exam: Normal Psychiatric Exam Psychiatric Exam: Normal Results Hemoglobin/Hematocrit: Hgb 9.3 g/dL (11.2-15.7) L 08/24/21 06:05 Hct 28.8 % (36.0-46.0) L 08/24/21 06:05 Abnormal Lab Findings: Abnormal Labs 08/22/21 08/22/21 08/22/21 16:40 16:40 20:00 RBC Hgb 10.7 L Hct 32.5 L MCH 26.8 L MPV 11.2 H Glucose 73 L Ur Amphetamines Screen Positive A 08/24/21 06:05 RBC 3.52 L Hgb 9.3 L Hct 28.8 L MCH 26.4 L MPV Glucose Ur Amphetamines Screen
--- NOTE | 2021-08-24 12:48 | PGE_ITS ---
Date of Service Date of service: 08/24/21 Time of Service: 12:49 Assessment and Plan Assessment and plan (1) Opiate dependence: Status: Acute Assessment and plan: 1. Automation Control Technician attended to help explain and support sharing consistent and thorough health care information to both parents of uli Gan. 2. Patient verbalizes understanding that we have an obligation to she and Adebayo to meet the needs of their baby and to keep parents informed and involved in his health care equally. KH Subjective Subjective Interval history since last seen: comic book writer was paged to come back to hospital to talk with patient per patient request as she is now aware that Pediatric provider Dr. Hahn feels that she needs to review that the baby is staying for observation for opiate withdrawal. Patient is upset by that and thought that the information related to her health care would be protected. I sat with patient and reviewed that in this situation, the baby has 2 parents that have the right to know of his care. I reviewed with her that we cannot disclose her information but that Adebayo DOHERTY, has a right to know about his baby's healthcare. I also reviewed that it is the baby's healthcare provider's obligation to make sure that both parents know of the baby's health. I have encouraged her to disclose this information herself. She is fearful that she will be asked to move out, she will loose this relationship. When I asked Thelma if she is concerned that BESSY Fiore, will act out other than being upset, Kerry reports that she is not concerned that Adebayo would do anything to hurt her or the children but that he will be short tempered with them and they will not understand why. She is tearful and states she doesn't understand why this is beneficial to the baby as Adebayo doesn't take care of the kids. I reviewed that it is her and Adebayo's parental right to knowledge of their baby's health and plan of care. I reviewed with her that Dr. Hahn is only meeting the needs of her patient, the baby. Thelma states she recognizes this and denies feeling anger toward anyone. She is ashamed in her own behaviors that have lead to this. I reviewed that she is doing what she can to be healthy and not use illegal opiates or substances and that she should be proud of her progress in her recovery. I reviewed that it is not possible for any health care provider, nurses, physicians and midwives to withhold information from one parent. Emotional support offered as we recognize this is difficult for her to go through but that again we are working to meet the needs of the baby and his care. KH Objective Last Vital Signs Temp 97.7 F 08/24/21 07:43 Pulse 78 08/24/21 07:43 Resp 16 08/24/21 07:43 BP 105/70 08/24/21 07:43 Pulse Ox 96 08/24/21 07:43 Laboratory Results - last 24 hr 08/24/21 06:05 WBC 9.91 RBC 3.52 L Hgb 9.3 L Hct 28.8 L MCV 81.8 MCH 26.4 L MCHC 32.3 RDW 12.6 Plt Count 167 MPV 10.7
--- NOTE | 2021-08-24 13:38 | NUR.NOTE ---
Luggage Attendant Jovani came in this morning around 0945 and met with RN to discuss plan moving forward concerning baby's father not knowing the medical indications for baby to stay at hospital. Luggage Attendant spoke with pt while FOB was not in room and informed her that as the baby's provider, she could not withhold information about the baby's condition to the baby's father. RN contacted Nursing Shank Scourer June Renae RN to notify of situation/upon meat wrapper request to contact [facility]. Nursing Shank Scourer followed up and spoke with Dr. Watkins who confirmed meat wrapper may speak with father of baby concerning baby's medical condition and plan of care. Pt asked RN to contact FARA Canela to come to bedside to answer questions. RN contacted Chinese Teacher Donita Lyons to notify of situation. Donita Lyons notified care management. Care management to unit to speak with pt while FOB not in room to discuss resources available to her should the father of the baby have a reaction resulting in a negative outcome for pt once he is made aware of situation. RN in to room to speak with pt. Pt very upset, concerned about what this situation will look like when she gets home, RN reassured pt we would support this situation as it plays out in the coming days. Nursing Note:
[2021-08-24] MEDS: Normal Saline Flush 10 ML SYR IVP (20:04)
[2021-08-24] MEDS: Ferrous Sulfate 325 MG TAB PO (20:04)
[2021-08-24 23:44] VITALS: BP 121/79; PULSE 84; RESP 18; TEMP 36.6; O2SAT 96
[2021-08-25] MEDS: Ibuprofen 600 MG TAB PO (07:18)
[2021-08-25] MEDS: Levothyroxine 50 MCG TAB PO (07:19)
[2021-08-25] MEDS: Acetaminophen 325 MG TAB 650 MG PO (07:19)
[2021-08-25] MEDS: Docusate Sodium 100 MG CAP PO (07:20)
[2021-08-25 07:28] VITALS: BP 119/82; PULSE 96; RESP 17; TEMP 36.5; O2SAT 96
[2021-08-25] MEDS: Pregabalin 100 MG CAP PO (08:24)
[2021-08-25] MEDS: buPROPion-XL 150 MG TABCR PO (08:25)
[2021-08-25] MEDS: Ferrous Sulfate 325 MG TAB PO (08:25)
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
[2021-08-26 14:45] LABS: Chlamydia Result Negative (Negative); GC Result Negative (Negative)
[2021-08-28 11:28] LABS: Buprenorphine 14.7 ng/mL (Cutoff: 5.0); Norbuprenorphine 89.8 ng/mL (Cutoff: 2.5)
== END 2021-08-25 15:17 | disposition home or self-care (01) | DRG 806 ==
LOC: OBS 16:01
PROVIDERS: Advanced Practice Midwife; Admitting Provider Advanced Practice Midwife; PCP Nurse Practitioner Adult Health; Visit Provider Advanced Practice Midwife
DX: O42.92 Full-term premature rupture of membranes, unspecified as to length of time between rupture and onset of labor (principal); O99.324 Drug use complicating childbirth; Z37.0 Single live birth; O99.354 Diseases of the nervous system complicating childbirth; O63.9 Long labor, unspecified; F11.21 Opioid dependence, in remission; Z3A.39 39 weeks gestation of pregnancy; O99.284 Endocrine, nutritional and metabolic diseases complicating childbirth; E03.9 Hypothyroidism, unspecified; O99.344 Other mental disorders complicating childbirth; O24.429 Gestational diabetes mellitus in childbirth, unspecified control; F90.9 Attention-deficit hyperactivity disorder, unspecified type; Z62.810 Personal history of physical and sexual abuse in childhood; M79.7 Fibromyalgia; O69.81X0 Labor and delivery complicated by cord around neck, without compression, not applicable or unspecified; O99.02 Anemia complicating childbirth; D64.9 Anemia, unspecified
CPT/HCPCS: 36410; 80307; 82947; 84112; 85027; 86850; 86900; 86901; 87491; 87591; 87635; 83036; 84436; 84443; 87081; 88307; J1050; J2405; J2540; J3010; J3490

== ENCOUNTER 2022-09-08 15:55 | Emergency (ER) | payer MEDICAID, SELFPAY ==
[2022-09-08 15:58] VITALS: BP 120/68; PULSE 86; RESP 15; TEMP 37.1; O2SAT 100
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
[2022-09-08] MEDS: Albuterol/Ipratropium 3 ML UPD VIAL UPD (16:20)
[2022-09-08] MEDS: Dexamethasone 10 MG/ML VIAL IM (16:20)
[2022-09-08] MEDS: Famotidine 20 MG TAB 40 MG PO (16:21)
[2022-09-08 17:48] VITALS: BP 132/80; PULSE 80; RESP 20; TEMP 36.8; O2SAT 99
== END 2022-09-08 17:47 | disposition home or self-care (01) ==
PROVIDERS: Emergency Provider Emergency Medicine; PCP Nurse Practitioner Adult Health
DX: T78.40XA Allergy, unspecified, initial encounter (principal); L50.9 Urticaria, unspecified; J45.909 Unspecified asthma, uncomplicated
CPT/HCPCS: 94640; 96372; 99284; J1100; J7620

== ENCOUNTER 2024-09-18 14:01 | Emergency (ER) | payer MEDICAID, SELFPAY ==
[2024-09-18] VITALS (8 sets, daily range): BP systolic 117–132; BP diastolic 71–88; PULSE 80–111; RESP 15–20; TEMP 36.7; O2SAT 93–99
--- NOTE | 2024-09-18 14:00 | RT.EKG_ITS ---
APPROVED REPORT Exam: Resting ECG Reason for Exam: Numbness Patient Location: E HR:99 bpm ECG Measurements Heart Rate 99 AXIS MA 133 P 44 QRSd 85 QRS 2 QT 325 T 25 QTc 418 Conclusion Sinus rhythm...normal P axis, V-rate 60- 99
--- NOTE | 2024-09-18 14:15 | DI.CT_ITS ---
Exam(s) CT BRAIN NECK CTA EXAM: CT BRAIN NECK CTA CLINICAL HISTORY: tia/cva. TECHNIQUE: Imaging Protocol: Axial CT angiography was performed with multi-slice acquisition and mu lti-planar and/or 3D reconstructions. CONTRAST MATERIAL: Intravenous: Omnipaque 350 contrast volume:70 mL COMPARISON: No exams were available for comparison FINDINGS: CT Head W/O and W: Ventricles and Extra axial spaces: Normal in size and morphology for the patient's age. Hemorrhage: None. Cerebral parenchyma: Normal. No evidence of an acute territorial infarct. No mass effect. Midline shift: None. Brainstem/Cerebellum: Normal. Calvarium: Normal. Visualized Paranasal sinuses/Mastoids: There is opacification of a few ethmoid air cells. The remain ing visualized paranasal sinuses and mastoid air cells are clear. Soft Tissues: Unremarkable. Enhancement: Unremarkable. CTA Neck W: Common Carotid: Right: No dissection, occlusion or significant stenosis. Left: No dissection, occlusion or significant stenosis. External Carotid: Right: No occlusion or significant stenosis. Left: No occlusion or significant stenosis. Internal Carotid: Right: No dissection, occlusion or significant stenosis. Left: No dissection, occlusion or significant stenosis. Vertebral Artery: Right: No dissection, occlusion or significant stenosis. Left: No dissection, occlusion or significant stenosis. Lung Apices: Normal. Bones: Within normal limits for the patient's age. Soft Tissues: Normal. Thyroid gland: Unremarkable. CTA Brain W: Internal Carotid Arteries: There is no aneurysm, occlusion or significant stenosis. Anterior Cerebral Arteries: Right: No aneurysm, occlusion or significant stenosis. Left: No aneurysm, occlusion or significant stenosis. Middle Cerebral Arteries: Right: No aneurysm, occlusion or significant stenosis. Left: No aneurysm, occlusion or significant stenosis. Posterior Cerebral Arteries: Right: No aneurysm, occlusion or significant stenosis. Left: No aneurysm, occlusion or significant stenosis. Vertebral Arteries: Right: No aneurysm, occlusion or significant stenosis. Left: No aneurysm, occlusion or significant stenosis. Basilar Artery: No aneurysm, occlusion or significant stenosis. IMPRESSION: 1. No large vessel occlusion or significant stenosis on the CT angiography of the head. 2. No acute intracranial process. 3. No occlusion or significant stenosis on the CT angiography of the neck. RADIATION DOSE DELIVERED: 2,151.92mGy.cm Total DLP DATA REPOSITORY: All CT scans at this facility are submitted to the National Radiology Data Registry (NRDR) Dose Index Registry (DIR) with the [employer] [place] [employer] (A[employer]). RADIATION OPTIMIZATION: All CT scans at this facility use at least one of these dose optimization te chniques: automated exposure control; mA and/or kV adjustment per patient size (includes targeted exa ms where dose is matched to clinical indication); or iterative reconstruction.
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
[2024-09-18 14:59] LABS: Abs Immature Grans 0.02 10^3/uL (0.0-0.06); Absolute Basophil Count 0.02 10^3/uL (0.0-0.2); Absolute Eosinophil Count 0.69 10^3/uL (0.0-0.7); Absolute Lymphocyte Count 1.82 10^3/uL (1.2-3.4); Absolute Monocyte Count 0.64 10^3/uL (0.1-0.8); Basophils % 0.3 %; Eosinophils % 10.2 %; HCT 40.6 % (36.0-46.0); HGB 13.7 g/dL (11.2-15.7); Immature Grans % 0.3 %; Lymphocytes % 26.8 %; MCH 28.9 pg (27.0-33.0); MCHC 33.7 % (32.0-36.0); MCV 86 fL (80-95); MPV 9.9 fL (8.0-11.0); Monocytes % 9.4 %; Platelet Count 190 10^3/uL (130-400); RBC 4.74 10^6/uL (3.93-5.22); RDW 11.9 % (11.7-14.6); RDW-SD 37.3 fL; WBC 6.79 10^3/uL (4.4-10.8)
[2024-09-18] MEDS: Omnipaque 350 MG/ML 100 ML BTL IJ (15:06)
[2024-09-18] MEDS: Normal Saline - Diluent 50 ML VIAL IJ (15:08)
[2024-09-18 15:20] LABS: Troponin I < 4 ng/L (<or=51)
[2024-09-18 15:24] LABS: ALT 48 U/L (14-59); AST 31 U/L (15-37); Albumin 3.9 g/dL (3.4-5.0); Alkaline Phosphatase 87 U/L (46-116); Anion Gap 4.2 mmol/L (3-11); BUN 17 mg/dL (7-18); Bilirubin, Total 1.3 mg/dL (0.2-1.0); CO2 29.8 mmol/L (21.0-32.0); CREATININE 0.7 mg/dL (0.55-1.02); Calcium 9.3 mg/dL (8.5-10.1); Chloride 104 mmol/L (98-107); Estimated GFR 112.05 (mL/min/1.73m2); Glucose 96 mg/dL (74-106); Magnesium 1.8 mg/dL (1.8-2.4); Potassium 3.8 mmol/L (3.5-5.1); Sodium 138 mmol/L (136-145); Total Protein 7.4 g/dL (6.4-8.2)
[2024-09-18 16:05] LABS: Troponin I < 4 ng/L (<or=51)
[2024-09-18] MEDS: Aspirin 81 MG CHEW PO (16:23)
== END 2024-09-18 16:33 | disposition home or self-care (01) ==
PROVIDERS: Emergency Provider Emergency Medicine; PCP Physician Assistant
DX: R20.0 Anesthesia of skin (principal); H53.9 Unspecified visual disturbance; R47.89 Other speech disturbances; E03.9 Hypothyroidism, unspecified
CPT/HCPCS: 36415; 70496; 70498; 80053; 93005; 99285; 83735; 84443; 84484; 85025; 93010; 99284; J3490